=== PATIENT | male | born 1970 | race Hispanic/Latino ===

== ENCOUNTER 2016-05-18 03:28 | Emergency (ER) | payer BC ==
[2016-05-18 03:41] VITALS: BP 128/59; PULSE 82; RESP 17; TEMP 98; O2SAT 98
--- NOTE | 2016-05-18 04:14 | ED PDOC ---
HPI: Back Time Seen by Provider: 05/18/16 03:51 Chief Complaint (Nursing): Back Pain Chief Complaint (Provider): back pain History Per: Patient Additional Complaint(s): Patient has history of chronic neck and back pain and presents this evening with worsening pain for the past 2 days. He denies trauma or injury. No associated chest pain, shortness of breath or dyspnea on exertion. Patient has not taken any medication for pain relief. Patient denies any bowel or bladder dysfunction, denies any fever or chills. Past Medical History Reviewed: Historical Data Vital Signs: Last Vital Signs Temp 98.0 F 05/18/16 03:36 Pulse 82 05/18/16 03:36 Resp 17 05/18/16 03:36 BP 128/59 L 05/18/16 03:36 Pulse Ox 98 05/18/16 03:36 - Medical History PMH: CVA (tia), HTN - Family History Family History: States: No Known Family Hx - Living Arrangements Living Arrangements: With Family - Social History Current smoker - smoking cessation education provided: No Alcohol: None Drugs: Denies - Home Medications Home Medications: Ambulatory Orders Medication Instructions Recorded Aspirin/Dipyridamole [Aggrenox 1 ea PO BID 05/02/15 25-200 mg] Atorvastatin [Lipitor] 20 mg PO HS 05/02/15 Valsartan [Diovan] 80 mg PO DAILY 05/02/15 Clopidogrel [Plavix] 75 mg PO DAILY #30 tab 05/05/15 Cyclobenzaprine [Cyclobenzaprine 10 mg PO TID PRN #20 tab 05/18/16 HCl] Naproxen [Naprosyn] 500 mg PO BID #20 tab 05/18/16 - Allergies Allergies/Adverse Reactions: Allergies Allergy/AdvReac Type Severity Reaction Status Date / Time Sulfa (Sulfonamide Allergy RASH Verified 05/02/15 22:15 Antibiotics) Review of Systems ROS Statement: Except As Marked, All Systems Reviewed And Found Negative Constitutional: Negative for: Fever Cardiovascular: Negative for: Chest Pain Respiratory: Negative for: Cough Gastrointestinal: Negative for: Nausea, Vomiting Genitourinary Male: Negative for: Dysuria, Frequency, Incontinence, Hematuria Musculoskeletal: Positive for: Neck Pain, Back Pain Neurological: Negative for: Weakness, Numbness, Headache, Dizziness Physical Exam - Reviewed Nursing Documentation Reviewed: Yes Vital Signs Reviewed: Yes - Physical Exam Appears: Positive for: Well, Non-toxic, No Acute Distress Head Exam: Positive for: ATRAUMATIC, NORMAL INSPECTION Skin: Negative for: Rash Eye Exam: Positive for: Normal appearance, EOMI, PERRL Neck: Positive for: Pain On Movement Of Neck (No midline tenderness or step-off) Cardiovascular/Chest: Positive for: Regular Rate, Rhythm Respiratory: Positive for: Normal Breath Sounds Back: Positive for: Vertebral Tenderness (lumbar), Other (negative bilateral straight leg raise). Negative for: L CVA Tenderness, R CVA Tenderness Extremity: Positive for: Normal ROM. Negative for: Pedal Edema Neurologic/Psych: Positive for: Alert, Oriented, Gait (steady). Negative for: Motor/Sensory Deficits, Aphasia, Facial Droop - ECG O2 Sat by Pulse Oximetry: 98 Pulse Ox Interpretation: Normal Medical Decision Making Medical Decision Making: Impression: chronic neck and back pain Plan: IM toradol PO flexeril Patient reports improvement of pain after medications given. Prescriptions given for Naprosyn and Flexeril. Patient was referred to orthopedist on-call for follow-up. Disposition - Clinical Impression Clinical Impression: Chronic back pain, Chronic neck pain - Patient ED Disposition Is Patient to be Admitted: No Counseled Patient/Family Regarding: Diagnosis, Need For Followup, Rx Given - Disposition Referrals: Keira Bryant MD [Staff Provider] - Disposition: Routine/Home Disposition Time: 05:17 Condition: STABLE Additional Instructions: Take prescription medications as directed as needed for pain. Follow-up with orthopedist for further evaluation. Prescriptions: Cyclobenzaprine [Cyclobenzaprine HCl] 10 mg PO TID PRN #20 tab PRN Reason: Muscle Spasm Naproxen [Naprosyn] 500 mg PO BID #20 tab Instructions: Chronic Back Pain (ED), Cervical Sprain (ED)
== END 2016-05-18 05:22 | disposition home or self-care (01) ==
LOC: H.ER 03:28
DX: M54.2 Cervicalgia (principal); M54.9 Dorsalgia, unspecified; I10 Essential (primary) hypertension; Z79.82 Long term (current) use of aspirin; Z86.73 Personal history of transient ischemic attack (TIA), and cerebral infarction without residual deficits
CPT/HCPCS: 96372; 99282; J1885